=== PATIENT | male | born 1940 | race Caucasian/White ===

== ENCOUNTER → 2019-01-16 07:55 | Outpatient (POV) | payer MEDICARE, SELFPAY | PROVIDERS: Visit Provider Dermatology | DX: Z00.00 Encounter for general adult medical examination without abnormal findings (principal) ==

== ENCOUNTER → 2019-07-05 09:23 | Outpatient (CLI) | payer MEDICARE, SELFPAY ==
[2019-07-06 10:37] LABS: PSA, Free 4.67 ng/mL; Prostate Specific Ag 16.6 ng/mL (0.0-4.0)
== END ==
PROVIDERS: Visit Provider Urology
DX: Z12.5 Encounter for screening for malignant neoplasm of prostate (principal); R97.20 Elevated prostate specific antigen [PSA]
CPT/HCPCS: 36415; 84153; 84154

== ENCOUNTER 2019-09-06 09:52 | Day surgery (SDC) | payer MEDICARE, SELFPAY ==
[2019-09-04 10:09] VITALS: BMI 23.8
[2019-09-06] VITALS (13 sets, daily range): BP systolic 137–170; BP diastolic 74–101; PULSE 55–90; RESP 16–22; TEMP 36.3–43; O2SAT 95–98
--- NOTE | 2019-09-06 10:40 | HMH.ANESCL ---
[facility] Anesthesia Checklist - Patient Identification Patient Identification: Arm Band - Structural Data Admitted From: Home Planned Operative Procedure/s: cystolithopaxy with laser Consent for Planned Operative Procedure(s) Verified: Yes Verified Documents: Surgical Consent, History and Physical - NPO Status Verified Time NPO: 00:00 - Additional verifications Anesthesia Reactions: No Hx Blood Transfusions: No Blood Transfusion Reaction: No - Airway Assessment C-Spine Mobility Assessed: Yes (mp2) TMJ Mobility Assessed: Yes Dentition: Good Dentition - Neurological Assessment Level of Consciousness: Awake, Alert - Anesthesia Plan Anesthesia Risk discussed: Yes Anesthesia Plan: Verified ASA Class: II Anesthesia Type: General [facility] History I have reviewed the patient's past medical history: Yes Medical History: Reports:: Hyperlipidemia, Hypertension Denies:: Cancer, Diabetes Mellitus Type 1, Diabetes Mellitus Type 2, Internal Pacemaker, Lung Disease, MRSA, Seizures *Have you ever received a pneumonia vaccine?: No *Have you received a flu vaccine this season?: Yes Other Medical History: Reports: Arthritis. Denies: Blood Transfusion Reaction Anesthesia experience/problems:: nac Laterality Cases: Right: Arthroscopy Knee Other Surgeries: Yes: Colonoscopy, Hernia Repair, Other. No: Pacemaker Amputation: No - *Social History Educational Level: Completed Graduate School Smoking Status: Never smoker Alcohol Intake: current Alcohol Intake Frequency:: holidays/special occasions only Substance Use Type: denies use *Occupational Status:: retired Housing: house Household Members: none *Travel in the last 8 weeks: None Family Hx:: No significant family history
--- NOTE | 2019-09-06 14:37 | HMH.ANESI ---
[facility] Anesthesia Record Part I Intake, IV Amount: 1,600 Estimated blood loss (mL): 30 Urine output (mL): 0 Blood Pressure: 137/74 SaO2: 95 Pulse Rate: 80 Respiratory Rate: 16 Temperature: 98.7 F Patient is:: Drowsy, Stable Stable to PACU at:: 14:30
--- NOTE | 2019-09-06 15:31 | P.OP_ITS ---
Date of procedure: 09/06/19 Pre-op Diagnosis:: 2.3 cm bladder stone Post-op Diagnosis:: 2.3 cm bladder stone, prostatic bleeding Procedure performed:: Cystolitholopaxy greater than centimeters utilizing a holmium laser/fulguration of the prostate bleeding Surgeon:: Fran Duncan MD PSYCHOLOGICAL TESTS SALES AGENT:: Haim Palafox Anesthesia: GETA Estimated blood loss (mL): 30 Clinical Note:: 79-year-old white male with recurrent lower urinary tract symptoms noted to have a 2.3 cm spiculated bladder stone on CT scan. Operative findings:: 2.3 cm spiculated bladder stone, no evidence of mucosal abnormalities, prostate enlargement and friable prostatic mucosa. Operative note:: Patient taken to the operating room after informed consent was obtained. He was placed on the operating table in the prone position and general anesthesia administered. Sequential compression devices and preoperative antibiotics administered. He was then placed into the dorsal lithotomy position and prepped and draped in the standard surgical fashion. A 25 Australian cystoscope passed into the urethral meatus and into the prostatic urethra which showed trilobar hyperplasia and moderately enlarged median lobe. Bladder was entered and examined in a systematic fashion. There is a large spiculated bladder stone evident. No mucosal abnormalities were noted. The 1000 nm laser fiber was passed through the scope and the stone was treated in its entirety. Once the stones were small and the we used the evacuator to evacuate smaller stone fragments. Towards the end of the case there was a stone that became entrenched over in the left lateral bladder that was difficult to reach. We eventually were able to laser it and remove it with the 3 Australian basket. There was some metal some prostatic oozing during the case making it difficult to visualize at times. If that is the case there was a small false passage noted in the posterior bladder wall. All the stones were evacuated successfully. Scope removed and a 16 Australian catheter was placed but there is some bleeding around the catheter so the 16 Australian catheter was removed and a 22 Australian catheter was placed but still little more blood and I was comfortable with this the patient was going to be discharged home so remove the 22 Australian catheter and replaced the 22 Australian cystoscope and prostatic mucosa was fulgurated with the Bugbee electrode. Then removed the scope and replaced the 22 Australian Reddy catheter. Patient was transported to the recovery room in stable condition. No complications were noted. Condition: stable Disposition: PACU Specimens:: Bladder stone Complications:: None
[2019-09-07 08:24] VITALS: BP 157/93; PULSE 90; TEMP 36.8
--- NOTE | 2019-09-07 08:24 | P.PN_ITS ---
[facility] Anesthesia Record Part II Discharge Time: 15:00 Destination: Surgical Day Care (OP Surgery) PACU nurse assessment reviewed?: Yes Patient Condition:: Good Anesthesia Complications:: None Swallowing reflex intact?: Yes Cyanosis?: No Blood Pressure: 157/93 Pulse Rate: 90 Temperature: 98.3 F Mental Status: Alert & Oriented Pain level:: 4 Nausea and/or vomitting:: None Intake, IV Amount: 0
[2019-09-21 18:34] LABS: Specimen Type URINARY BLADDER
[2019-09-21 18:35] LABS: Composition SEE BELOW:
== END 2019-09-06 16:31 | disposition home or self-care (01) ==
LOC: OR 09:54
PROVIDERS: PCP Internal Medicine; Visit Provider Urology
PROC: (CPT 52317; principal; 2019-09-06 11:30)
DX: N21.0 Calculus in bladder (principal); R97.20 Elevated prostate specific antigen [PSA]; N39.41 Urge incontinence; I10 Essential (primary) hypertension; Z79.899 Other long term (current) drug therapy
CPT/HCPCS: 52317; 82370; 96374; J2405

== ENCOUNTER → 2019-09-13 15:31 | Outpatient (CLI) | payer MEDICARE, SELFPAY | PROVIDERS: Visit Provider Urology | DX: N30.90 Cystitis, unspecified without hematuria (principal) | CPT/HCPCS: 87086 ==

== ENCOUNTER 2019-09-15 12:58 | Emergency (ER) | payer MEDICARE, SELFPAY ==
[2019-09-15 13:00] VITALS: BP 120/85; PULSE 80; RESP 20; TEMP 36.8; O2SAT 98; BMI 23.0
[2019-09-15 13:24] VITALS: BP 123/85; PULSE 85; RESP 20; TEMP 36.8; O2SAT 98
== END 2019-09-15 13:25 | disposition left against medical advice (07) ==
PROVIDERS: Emergency Provider Family Medicine; PCP Internal Medicine
DX: T83.018A Breakdown (mechanical) of other urinary catheter, initial encounter (principal)
CPT/HCPCS: 99211

== ENCOUNTER → 2019-09-27 15:02 | Outpatient (CLI) | payer MEDICARE, SELFPAY | PROVIDERS: Visit Provider Urology | DX: N40.1 Benign prostatic hyperplasia with lower urinary tract symptoms (principal); R33.8 Other retention of urine | CPT/HCPCS: 87086; 87088; 87186 ==

== ENCOUNTER → 2019-11-15 07:19 | Outpatient (CLI) | payer MEDICARE, SELFPAY ==
[2019-11-15 08:17] LABS: Coronavirus 19 IgG Antibody Negative (Negative); Coronavirus 19 IgM Antibody Negative (Negative)
== END ==
PROVIDERS: Visit Provider Surgery
DX: Z01.818 Encounter for other preprocedural examination (principal)
CPT/HCPCS: 36415; 86328

== ENCOUNTER 2019-11-15 07:55 | Day surgery (SDC) | payer MEDICARE, SELFPAY ==
[2019-11-14 10:22] VITALS: BMI 24.0
[2019-11-15 08:06] VITALS: BP 126/69; PULSE 57; RESP 18; TEMP 36.4; O2SAT 98
--- NOTE | 2019-11-15 08:18 | HMH.ANESCL ---
[facility] Anesthesia Checklist - Patient Identification Patient Identification: Arm Band - Structural Data Admitted From: Home Planned Operative Procedure/s: colonoscopy Consent for Planned Operative Procedure(s) Verified: Yes Verified Documents: Surgical Consent, History and Physical - NPO Status Verified Time NPO: 00:00 - Additional verifications Anesthesia Reactions: No Hx Blood Transfusions: No Blood Transfusion Reaction: No - Airway Assessment C-Spine Mobility Assessed: Yes (mp2) TMJ Mobility Assessed: Yes Dentition: Good Dentition - Neurological Assessment Level of Consciousness: Awake, Alert - Anesthesia Plan Anesthesia Risk discussed: Yes Anesthesia Plan: Verified ASA Class: II Anesthesia Type: MAC [facility] History I have reviewed the patient's past medical history: Yes Medical History: Reports:: Hyperlipidemia, Hypertension, Kidney Stones Denies:: Cancer, Diabetes Mellitus Type 1, Diabetes Mellitus Type 2, Internal Pacemaker, Lung Disease, MRSA, Seizures *Have you ever received a pneumonia vaccine?: Yes *Have you received a flu vaccine this season?: No Other Medical History: Reports: Arthritis. Denies: Blood Transfusion Reaction Anesthesia experience/problems:: nac Laterality Cases: Right: Arthroscopy Knee Other Surgeries: Yes: Colonoscopy, Hernia Repair, Other. No: Pacemaker Amputation: No Fractures: No - *Social History Educational Level: Completed Graduate School Smoking Status: Never smoker Alcohol Intake: current Alcohol Intake Frequency:: holidays/special occasions only Substance Use Type: denies use *Occupational Status:: retired Housing: house Household Members: none, friend(s) *Travel in the last 8 weeks: None Family Hx:: No significant family history
[2019-11-15 09:38] VITALS: O2SAT 99
--- NOTE | 2019-11-15 10:15 | HMH.SCOPE ---
- Procedure: Date: 11/15/19 Procedure Performed:: Colonoscopy with polypectomy by means other than snare Indications:: History of multiple complex polyps Performing Provider:: Terry Turcios MD Referring Provider:: . Sedation:: Monitored anesthesia care Procedure:: After informed consent was obtained the patient was taken to the endoscopy suite. Sedation ensued after the patient was transferred to the left lateral decubitus position. Pulse, blood pressure, and oxygen saturation were monitored throughout the procedure. Digital rectal exam revealed no significant abnormality. The colonoscope was placed in position. The entire colon was evaluated. The colonoscope was carefully removed and the patient was transferred to recovery in stable condition. Please see findings and specimens below for detail. Findings:: Bowel preparation moderate Significant lack of relaxation Pandiverticulosis Anal canal polyp Specimens:: Anal canal polyp Recommendations:: Timing of repeat colonoscopy is pending pathology will likely be between 2-3 years secondary to history of multiple complex polyps, moderate bowel preparation, and significant lack of relaxation. Complications:: No immediate Estimated blood obtained (mL): 1
[2019-11-15 10:16] VITALS: BP 89/45; PULSE 78; RESP 18; TEMP 36.1; O2SAT 96
[2019-11-15 10:25] VITALS: BP 90/48; PULSE 66; RESP 18; O2SAT 98
[2019-11-15 10:35] VITALS: BP 92/56; PULSE 72; RESP 18; O2SAT 98
== END 2019-11-15 10:35 | disposition home or self-care (01) ==
LOC: OUTP 07:56
PROVIDERS: PCP Internal Medicine; Visit Provider Surgery
PROC: 0DJD8ZZ Inspection of Lower Intestinal Tract, Via Natural or Artificial Opening Endoscopic (ICD-10-PCS; CPT 45380; principal; 2019-11-15 09:30)
DX: Z12.11 Encounter for screening for malignant neoplasm of colon (principal); K62.0 Anal polyp; K57.30 Diverticulosis of large intestine without perforation or abscess without bleeding; Z86.010 Personal history of colon polyps; I10 Essential (primary) hypertension; E78.5 Hyperlipidemia, unspecified; M19.90 Unspecified osteoarthritis, unspecified site; Z79.899 Other long term (current) drug therapy; Z87.442 Personal history of urinary calculi
CPT/HCPCS: 45380; 36415; 86328; 88305